=== PATIENT | female | born 1940 | race Caucasian/White ===

== ENCOUNTER 2021-01-04 09:39 | Inpatient (IN) | payer BC, MEDICARE ==
[~2021-01-04] VITALS: Ht 147.3 cm; Wt 93.8 kg
[2021-01-04 15:02] VITALS: BP 178/91
--- NOTE | 2021-01-04 15:53 | HPEPDOC ---
Custom Stock Maker Note DATE OF ADMISSION: 01-04-21 DATE OF SERVICE: 01-04-21 TIME OF ADMISSION: Please refer to physician's admission order. SOURCE OF ADMISSION INFORMATION: [facility] record and patient CHIEF COMPLAINT: stroke HISTORY OF PRESENT ILLNESS: 80F pmh HLD, DM, HTN, hypothyroidism, asplenia who presented to [facility] on 01-01-21 with slurred speech and left sided weakness. MRI 01-01-21 showed, 0.8cm focus of acute to subacute ischemia in the right anterior ben. Neurology was consulted and suggested ASA 325mg daily and statin therapy for secondary stroke prevention. ECHO showed no thrombus with an EF of 60% and diastolic dysfunction is present, however it can not be evaluated furtherbecause extensive mitral annular/apparatus calcification and US carotids did not show significant stenosis. She was placed on a puree diet and noted to have mobility and ADL impairments below her prior level of function and deemed medically appropriate for discharge to ARU on 01-04-21. On initial eval patient reports she recently underwent tooth extraction and had a course of antibiotics, but still feels some swelling and pain. SHe denies fevers or chills, no drainage. REVIEW OF SYSTEMS: The following is a completed review of systems and has been reviewed. Review of systems otherwise unremarkable. PAIN: Patient self reports no pain EYES: No recent vision changes EARS, NOSE, & THROAT: + dysphagia CARDIOVASCULAR: Denies chest pain or palpitations PULMONARY: Denies shortness of breath GASTROINTESTINAL: Denies constipation/diarrhea GENITOURINARY: denies dysuria MUSCULOSKELETAL: left sided weakness NEUROLOGICAL:left sided paresis HEMATOLOGICAL: denies easy bruising SKIN: denies rash PSYCHIATRIC: Unremarkable All other review of systems found to be negative. PAST MEDICAL HISTORY: as per HPI PAST SURGICAL HISTORY: as per HPI ALLERGIES: Please see below. MEDICATIONS: Please see below. FAMILY: Cardiac SOCIAL HISTORY: No smoking, occasional wine, no illicit drugs DIET: puree and nectar PHYSICAL EXAMINATION: VITAL SIGNS: Please see below. GENERAL: Pleasant and cooperative. No acute distress. HEENT: PERRL. Extraocular movements intact. Clear conjunctiva, no LAD CARDIOVASCULAR: Regular rate and rhythm. No murmurs, rubs, or gallops LUNGS: Clear to auscultation bilaterally. No wheezes. No rhonchi ABDOMEN: Soft, nontender, nondistended. Positive bowel sounds. Normal active bowel sounds NEUROLOGICAL: Alert and oriented times three. Cranial nerves II through XII grossly intact. Sensation grossly intact, no extinction to touch on left side EXTREMITIES: 5/5 RUE, 4/5 LUE, 5\5 strength right lower extremity. 4/5 strength in left lower extremity. SKIN: intact (+) bilat LE edema LABORATORY DATA: Please see below. IMAGING:Imaging documentation personally reviewed by record FUNCTIONAL STATUS: Premorbid: Independent with all activities of daily life as well as mobility On Admission: Requiring assistance for bed mobility, functional transfers, toileting GOALS: Mod-I functional transfers, ambulation household distances, dressing, toileting, bathing ASSESSMENT:80-year-old F with past medical history of HTN who presents status post stroke PLAN: 1. Rehab- PT/OT advance mobility and ADLs, strengthen/stretch/maintain ROM all 4 limbs -ASSISTANT SPA DIRECTOR for swallow and cog 2. Neuro- s/p stroke with left sided paresis, c/u ASA 325mg daily and statin for secondary stroke prevention -SSRI for motor recovery 3. Cardiac- hx of HTN c/u lisinopril, chronic diastolic CHF-daily weights, fluid restrict, will start low dose lasix given LE edema and monitor kidney function 4. Resp- encourage incentive spirometry, monitor for infection 5. Dental- will start Azithromycin to cover for recent tooth extraction, salt- water mouth rinses, magic mouth wash 6. Endo- hx of hypothyroidism- c/u synthroid 7. Pain -tylenol prn 8. DVT ppx- lovenox 9. GI ppx- protonix 10. DIpso- tbd POST ADMISSION PHYSICIAN EVALUATION: Medical and functional status: Description of medical status, medical assessment: As above. Rehabilitation diagnosis and current and prior cold morbid medical conditions as above. Risk of complications and plans to mitigate them as above. Description of functional status current status is as above. Prior status as above. Status compared to preadmission: There are no clinically significant differences between the patient's current status and the information described on the preadmission screening document. Treatment plan anticipated: Treatment plan is as described above. Required disciplines including physical therapy, occupational therapy, others as noted above Intensity of services: 3 hours a day, 6 days a week. Special considerations: There are no specific special or safety considerations that would likely preclude immediate implementation of an intensive rehabilitation program or subsequently influence the plan of care. ATTESTATION: Considering all the information above, it is my best judgment that this patient requires intensive rehabilitation therapy as described above and an inpatient hospital environment due to the complexity of nursing, medical, and rehabilitation needs required by the patient. Furthermore, this patient can reasonably be expected to participate in an benefit from an inpatient rehabilitation stay with an interdisciplinary team approach to the delivery of rehabilitation care under the direction and supervision of rehabilitation physician PROGNOSIS: Excellent ESTIMATED LENGTH OF STAY:10-14 days. PROJECTED DISCHARGE DESTINATION: Home with family support and any durable medical equipment required to increase functional safety and mobility. TIME SPENT COUNSELING AND COORDINATING INITIAL CARE: Greater than 70 minutes. Vital Signs Vital Sign - Last 24 Hours 01/04/21 15:02 Temp 98.0 Pulse 64 Resp 22 B/P (MAP) 178/91 (120) Pulse Ox 94 O2 Delivery Room Air Home Medications Scheduled Aspirin (Aspirin) 325 Mg Tablet, 325 MG PO DAILY, (Reported) Atorvastatin Calcium (Atorvastatin Calcium) 40 Mg Tablet, 80 MG PO QHS, (Reported) Diclofenac Sodium (Diclofenac Sodium) 75 Mg Tablet.dr, 75 MG PO BID, (Reported) Levothyroxine Sodium (Levothyroxine Sodium) 100 Mcg Tablet, 100 MCG PO DAILY, (Reported) Lisinopril (Lisinopril) 20 Mg Tablet, 20 MG PO DAILY, (Reported) Pantoprazole Sodium (Pantoprazole Sodium) 40 Mg Tablet.dr, 40 MG PO DAILY, (Reported) Scheduled PRN Docusate Sodium (Docusate Sodium) 100 Mg Capsule, 100 MG PO BID PRN for CONSTIPATION, (Reported) Allergies Coded Allergies: No Known Allergies (Unverified , 01/04/21) A-FIB/CHADSVASC A-FIB History Current/History of A-Fib/PAF?: No Current PO Anticoag Therapy: No ALHAJI PRATT MD Jan 04, 2021 15:53
[2021-01-04] MEDS ORDERED: AZITHROMYCIN 250MG TABLET PO ONE (15:55)
[2021-01-04] MEDS: LACTOBACILLUS ACIDOPHILUS CAP (BACID) PO SCH ×2 (16:00→21:16)
[2021-01-04] MEDS: REMEDY PHYTOPLEX Z-GUARD PASTE 113GM TUBE (FROM STOREROOM PRODUCT) TOP SCH ×2 (16:00→21:22)
[2021-01-04] MEDS ORDERED: ATOR40TA75 PO (16:26)
[2021-01-04] MEDS ORDERED: DICL75TA PO (16:26)
[2021-01-04] MEDS ORDERED: LEVO100T5 PO (16:26)
[2021-01-04] MEDS ORDERED: PANT40TA29 PO (16:26)
[2021-01-04] MEDS ORDERED: LISI20TA33 PO (16:26)
[2021-01-04] MEDS ORDERED: DOCU100C17 PO (16:55)
[2021-01-04] MEDS ORDERED: ASPI325T57 PO (16:55)
[2021-01-04] MEDS: MAGIC MOUTHWASH SUSPENSION BTL SSP SCH (17:18)
[2021-01-04] MEDS: ACETAMINOPHEN TAB 650MG DOSE (2X325MG) PO PRN (17:41)
[2021-01-04 20:20] VITALS: BP 128/56
[2021-01-04] MEDS: ATORVASTATIN 20 MG TAB PO SCH (21:16)
[2021-01-04] MEDS: DOCUSATE SODIUM 100MG CAPSULE PO SCH (21:16)
[2021-01-04] MEDS: SENNA 8.6 MG TAB (SENOKOT) PO SCH (21:16)
[2021-01-05] MEDS: LEVOTHYROXINE 100MCG TABLET (0.1MG) PO SCH (05:46)
[2021-01-05 06:32] VITALS: BP 137/63
[2021-01-05 07:11] LABS: BASO % 0.4 % (0.0-1.0); EOS # 0.3 10^3/uL (0.0-0.5); EOS % 3.5 % (0.0-3.0); HEMOGLOBIN 12.7 g/dl (12.0-15.5); LYMPH # 2.3 10^3/uL (1.5-5.0); LYMPH % 24.8 % (24.0-44.0); MEAN CORPUSCULAR HEMOGLOBIN 31.9 pg (27.0-33.0); MEAN CORPUSCULAR HGB CONC 31.8 g/dl (32.0-36.5); MEAN CORPUSCULAR VOLUME 100.5 fl (80.0-96.0); MONO # 0.6 10^3/uL (0.0-0.8); MONO % 6.2 % (2.0-8.0); NEUTROPHILS % 64.7 % (36.0-66.0); PLATELET COUNT, AUTOMATED 297 10^3/uL (150-450); RED BLOOD COUNT 3.98 10^6/uL (4.00-5.40); WHITE BLOOD COUNT 9.3 10^3/uL (4.0-10.0)
[2021-01-05 07:35] LABS: ALBUMIN 3.3 GM/DL (3.2-5.2); ALT/SGPT 23 U/L (12-78); BILIRUBIN,TOTAL 0.6 MG/DL (0.2-1.0); BLOOD UREA NITROGEN 16 MG/DL (7-18); CALCIUM LEVEL 9.3 MG/DL (8.8-10.2); CARBON DIOXIDE LEVEL 30 MEQ/L (21-32); CHLORIDE LEVEL 108 MEQ/L (98-107); CREATININE FOR GFR 0.86 MG/DL (0.55-1.30); GLOMERULAR FILTRATION RATE > 60.0 (>32); GLUCOSE, FASTING 113 MG/DL (70-100); SODIUM LEVEL 142 MEQ/L (136-145); TOTAL PROTEIN 6.5 GM/DL (6.4-8.2)
[2021-01-05] MEDS: ASPIRIN ENTERIC 325 MG TAB PO SCH (08:33)
[2021-01-05] MEDS: LACTOBACILLUS ACIDOPHILUS CAP (BACID) PO SCH ×3 (08:34→20:35)
[2021-01-05] MEDS: DOCUSATE SODIUM 100MG CAPSULE PO SCH ×2 (08:34→20:35)
[2021-01-05] MEDS: PANTOPRAZOLE 40MG TAB (PROTONIX) PO SCH (08:34)
[2021-01-05] MEDS: AZITHROMYCIN 250MG TABLET PO SCH (08:34)
[2021-01-05] MEDS: FUROSEMIDE 20 MG TAB PO SCH (08:34)
[2021-01-05] MEDS: REMEDY PHYTOPLEX Z-GUARD PASTE 113GM TUBE (FROM STOREROOM PRODUCT) TOP SCH ×3 (08:36→20:36)
[2021-01-05] MEDS: MAGIC MOUTHWASH SUSPENSION BTL SSP SCH ×3 (08:37→16:55)
[2021-01-05 14:00] VITALS: BP 122/75
[2021-01-05 20:00] VITALS: BP 119/58
[2021-01-05] MEDS: SENNA 8.6 MG TAB (SENOKOT) PO SCH (20:35)
[2021-01-05] MEDS: ATORVASTATIN 20 MG TAB PO SCH (20:35)
[2021-01-05] MEDS: ACETAMINOPHEN TAB 650MG DOSE (2X325MG) PO PRN (20:35)
[2021-01-06 05:32] VITALS: BP 140/65
[2021-01-06] MEDS: LEVOTHYROXINE 100MCG TABLET (0.1MG) PO SCH (05:48)
[2021-01-06] MEDS: FUROSEMIDE 20 MG TAB PO SCH (08:06)
[2021-01-06] MEDS: PANTOPRAZOLE 40MG TAB (PROTONIX) PO SCH (08:06)
[2021-01-06] MEDS: DOCUSATE SODIUM 100MG CAPSULE PO SCH ×2 (08:06→21:33)
[2021-01-06] MEDS: AZITHROMYCIN 250MG TABLET PO SCH (08:06)
[2021-01-06] MEDS: ASPIRIN ENTERIC 325 MG TAB PO SCH (08:06)
[2021-01-06] MEDS: MAGIC MOUTHWASH SUSPENSION BTL SSP SCH ×3 (08:06→16:57)
[2021-01-06] MEDS: LACTOBACILLUS ACIDOPHILUS CAP (BACID) PO SCH ×3 (08:06→21:33)
[2021-01-06] MEDS: REMEDY PHYTOPLEX Z-GUARD PASTE 113GM TUBE (FROM STOREROOM PRODUCT) TOP SCH ×3 (08:07→21:00)
[2021-01-06 14:00] VITALS: BP 133/64
[2021-01-06] MEDS: ACETAMINOPHEN TAB 650MG DOSE (2X325MG) PO PRN (16:58)
[2021-01-06 20:00] VITALS: BP 127/65
[2021-01-06] MEDS: SENNA 8.6 MG TAB (SENOKOT) PO SCH (21:33)
[2021-01-06] MEDS: ATORVASTATIN 20 MG TAB PO SCH (21:33)
[2021-01-07] MEDS: LEVOTHYROXINE 100MCG TABLET (0.1MG) PO SCH (05:37)
[2021-01-07 06:00] VITALS: BP 130/65
[2021-01-07] MEDS: FUROSEMIDE 20 MG TAB PO SCH (08:51)
[2021-01-07] MEDS: AZITHROMYCIN 250MG TABLET PO SCH (08:51)
[2021-01-07] MEDS: PANTOPRAZOLE 40MG TAB (PROTONIX) PO SCH (08:51)
[2021-01-07] MEDS: ASPIRIN ENTERIC 325 MG TAB PO SCH (08:51)
[2021-01-07] MEDS: LACTOBACILLUS ACIDOPHILUS CAP (BACID) PO SCH ×3 (08:51→20:43)
[2021-01-07] MEDS: DOCUSATE SODIUM 100MG CAPSULE PO SCH ×2 (08:51→20:43)
[2021-01-07] MEDS: REMEDY PHYTOPLEX Z-GUARD PASTE 113GM TUBE (FROM STOREROOM PRODUCT) TOP SCH ×3 (08:52→20:44)
[2021-01-07] MEDS: MAGIC MOUTHWASH SUSPENSION BTL SSP SCH ×3 (08:52→16:30)
--- NOTE | 2021-01-07 09:39 | IPNPDOC ---
PM&R Progress Note DATE OF SERVICE: Jan 07, 2021 Tester Equipment Progress Note Subjective: Patient reporting her tooth feels less sore, but that her neck is stiff and sore. REVIEW OF SYSTEMS: The following is a completed review of systems and has been reviewed. Review of systems otherwise unremarkable. PAIN: Patient self reports no pain EYES: No recent vision changes EARS, NOSE, & THROAT: + dysphagia CARDIOVASCULAR: Denies chest pain or palpitations PULMONARY: Denies shortness of breath GASTROINTESTINAL: Denies constipation/diarrhea GENITOURINARY: denies dysuria MUSCULOSKELETAL: left sided weakness NEUROLOGICAL:left sided paresis HEMATOLOGICAL: denies easy bruising SKIN: denies rash PSYCHIATRIC: Unremarkable All other review of systems found to be negative. PHYSICAL EXAMINATION: VITAL SIGNS: Please see below. GENERAL: Pleasant and cooperative. No acute distress. HEENT: PERRL. Extraocular movements intact. Clear conjunctiva, no LAD CARDIOVASCULAR: Regular rate and rhythm. No murmurs, rubs, or gallops LUNGS: Clear to auscultation bilaterally. No wheezes. No rhonchi ABDOMEN: Soft, nontender, nondistended. Positive bowel sounds. Normal active bowel sounds NEUROLOGICAL: Alert and oriented times three. Cranial nerves II through XII grossly intact. Sensation grossly intact, no extinction to touch on left side EXTREMITIES: 5/5 RUE, 4/5 LUE, 5\5 strength right lower extremity. 4/5 strength in left lower extremity. SKIN: intact (+) bilat LE edema +TTP bilat cervical paraspinals ASSESSMENT:80-year-old F with past medical history of HTN who presents status post stroke PLAN: 1. Rehab- PT/OT advance mobility and ADLs, strengthen/stretch/maintain ROM all 4 limbs -LARYNGOLOGIST for swallow and cog 2. Neuro- s/p stroke with left sided paresis, c/u ASA 325mg daily and statin for secondary stroke prevention -SSRI for motor recovery 3. Cardiac- hx of HTN c/u lisinopril, chronic diastolic CHF-daily weights, fluid restrict, c/u low dose lasix, LE edema improving and monitor kidney function 4. Resp- encourage incentive spirometry, monitor for infection 5. Dental- c/u Azithromycin to cover for recent tooth extraction, salt-water mouth rinses, magic mouth wash 6. Endo- hx of hypothyroidism- c/u synthroid 7. Pain -tylenol prn, lidoderm to neck and k-pad 8. DVT ppx- lovenox 9. GI ppx- protonix 10. DIpso- tbd Allergies Coded Allergies: No Known Allergies (Unverified , 01/04/21) Vital Signs Vital Signs Date Time Temp Pulse Resp B/P (MAP) Pulse Ox O2 Delivery O2 Flow Rate FiO2 01/07/21 08:56 136/64 01/07/21 06:00 97.5 66 18 92 Room Air Current Medications Current Medications Current Medications Medications (Trade) Dose Ordered Sig/Kavin Route PRN Reason Start Time Stop Time Status Last Admin Dose Admin Acetaminophen (Tylenol Tab) 650 mg Q4HP PRN PO fever/MILD PAIN (PS 1-4) 01/04/21 15:55 01/06/21 16:58 Aspirin (Ecotrin) 325 mg DAILY PO 01/05/21 09:00 01/07/21 08:51 Atorvastatin Calcium (Lipitor) 80 mg QHS PO 01/04/21 21:00 01/06/21 21:33 Azithromycin (Zithromax Tab) 250 mg DAILY PO 01/05/21 09:00 01/09/21 23:00 01/07/21 08:51 Docusate Sodium (Colace) 100 mg BID PO 01/04/21 21:00 01/07/21 08:51 Furosemide (Lasix) 20 mg DAILY PO 01/05/21 09:00 01/07/21 08:51 Home Med (Med Rec Complete!) ASDIRECTED XX 01/04/21 17:00 01/04/21 17:03 DC Lactobacillus Acidophilus (Bacid) 1 ea TID PO 01/04/21 16:00 01/07/21 08:51 Levothyroxine Sodium (Synthroid) 100 mcg DAILY@06 PO 01/05/21 06:00 01/07/21 05:37 Lidocaine/ Diphenhydr/Alum/ Mg/Simeth (Magic Mouthwash) 5ML AC SSP 01/04/21 17:30 01/07/21 08:52 Lisinopril (Prinivil) 20 mg DAILY PO 01/05/21 09:00 01/07/21 08:56 Pantoprazole Sodium (Protonix) 40 mg DAILY PO 01/05/21 09:00 01/07/21 08:51 Senna (Senokot) 1 tab [facility] PO 01/04/21 21:00 01/06/21 21:33 ALHAJI PRATT MD Jan 07, 2021 09:39
[2021-01-07 10:08] LABS: BASO # 0.1 10^3/uL (0.0-0.2); BASO % 0.8 % (0.0-1.0); EOS # 0.3 10^3/uL (0.0-0.5); EOS % 3.2 % (0.0-3.0); HEMOGLOBIN 12.9 g/dl (12.0-15.5); LYMPH # 2.4 10^3/uL (1.5-5.0); LYMPH % 24.7 % (24.0-44.0); MEAN CORPUSCULAR HEMOGLOBIN 31.9 pg (27.0-33.0); MEAN CORPUSCULAR HGB CONC 31.5 g/dl (32.0-36.5); MEAN CORPUSCULAR VOLUME 101.2 fl (80.0-96.0); MONO # 0.7 10^3/uL (0.0-0.8); MONO % 6.9 % (2.0-8.0); NEUTROPHILS # 6.3 10^3/uL (1.5-8.5); PLATELET COUNT, AUTOMATED 307 10^3/uL (150-450); RED BLOOD COUNT 4.05 10^6/uL (4.00-5.40); WHITE BLOOD COUNT 9.9 10^3/uL (4.0-10.0)
[2021-01-07 10:37] LABS: BLOOD UREA NITROGEN 26 MG/DL (7-18); CALCIUM LEVEL 9.1 MG/DL (8.8-10.2); CARBON DIOXIDE LEVEL 33 MEQ/L (21-32); CHLORIDE LEVEL 106 MEQ/L (98-107); GLOMERULAR FILTRATION RATE > 60.0 (>32); GLUCOSE, FASTING 116 MG/DL (70-100); POTASSIUM SERUM 4.2 MEQ/L (3.5-5.1); SODIUM LEVEL 142 MEQ/L (136-145)
[2021-01-07] MEDS: ACETAMINOPHEN TAB 650MG DOSE (2X325MG) PO PRN ×2 (12:14→17:26)
[2021-01-07 14:00] VITALS: BP 132/58
--- NOTE | 2021-01-07 18:51 | IPNPDOC ---
Text Note Date of Service The patient was seen on 01/07/21. NOTE Subjective: No any acute events overnight. Patient denied fever, chills, chest pain, palpitations Objective: GENERAL APPEARANCE: NAD HEENT: no scleral icterus, no JVD, EOMI CARDIOVASCULAR: S1S2 LUNGS: CTA ABDOMEN: soft & not tender w palpitation MUSCULOSKELETAL: no cyanosis, no swelling INTEGUMENT: no generalized pallor NEUROLOGICAL: cranial nerve function from 2-12 intact intact, follows commands, speech not dysarthric Assessment and plan: Patient is 80F pmh HLD, DM, HTN, hypothyroidism, asplenia was transferred to acute rehabilitation after right sided stroke. Status post stroke PT/OT Continue atorvastatin, aspirin Hypertension Blood pressures under control Continue home cardioprotective medications Chronic diastolic CHF Patient euvolemic I's and O's Cardiac diet Continue Lasix Hypothyroidism Continue levothyroxine Status post recent tooth extraction Patient developed tenderness over area of tooth extraction ARU team started azithromycin, salt-water mouth rinses, magic mouth wash VS,Fishbone, I+O VS, Fishbone, I+O Laboratory Tests 01/07/21 09:50 Vital Signs Date Time Temp Pulse Resp B/P (MAP) Pulse Ox O2 Delivery O2 Flow Rate FiO2 01/07/21 14:00 98.8 69 18 132/58 (82) 93 Room Air I&O- Last 24 Hours up to 6 AM 01/07/21 05:59 Intake Total 720 ml Balance 720 ml DEDRICK HAQUE DO Jan 07, 2021 18:51
[2021-01-07 20:00] VITALS: BP_SYST 150; BP_SYST 155; BP_DIAS 77; BP_DIAS 88
[2021-01-07] MEDS: SENNA 8.6 MG TAB (SENOKOT) PO SCH (20:43)
[2021-01-07] MEDS: LIDOCAINE 5% (LIDODERM) PATCH TD SCH (20:43)
[2021-01-07] MEDS: ATORVASTATIN 20 MG TAB PO SCH (20:44)
[2021-01-08 05:20] VITALS: BP 119/56
[2021-01-08] MEDS: LEVOTHYROXINE 100MCG TABLET (0.1MG) PO SCH (06:08)
[2021-01-08] MEDS: AZITHROMYCIN 250MG TABLET PO SCH (08:21)
[2021-01-08] MEDS: ASPIRIN ENTERIC 325 MG TAB PO SCH (08:22)
[2021-01-08] MEDS: LACTOBACILLUS ACIDOPHILUS CAP (BACID) PO SCH ×3 (08:22→20:45)
[2021-01-08] MEDS: FUROSEMIDE 20 MG TAB PO SCH (08:22)
[2021-01-08] MEDS: ACETAMINOPHEN TAB 650MG DOSE (2X325MG) PO PRN ×2 (08:22→13:55)
[2021-01-08] MEDS: DOCUSATE SODIUM 100MG CAPSULE PO SCH ×2 (08:22→20:45)
[2021-01-08] MEDS: PANTOPRAZOLE 40MG TAB (PROTONIX) PO SCH (08:22)
[2021-01-08] MEDS: MAGIC MOUTHWASH SUSPENSION BTL SSP SCH ×3 (08:23→16:12)
[2021-01-08] MEDS: REMEDY PHYTOPLEX Z-GUARD PASTE 113GM TUBE (FROM STOREROOM PRODUCT) TOP SCH ×3 (08:23→20:49)
[2021-01-08] MEDS: **NOTE PATIENT COMMENT** MISC XX SCH (08:23)
--- NOTE | 2021-01-08 11:38 | IPNPDOC ---
PM&R Progress Note DATE OF SERVICE: Jan 08, 2021 Case Briefer Progress Note Subjective: Patient tearful stating her neck is painful and she is worried that her family is stressed by her stroke. She is agreeable to trying Cymbalta for her neck pain and to help treat her stroke symptoms and mood. REVIEW OF SYSTEMS: The following is a completed review of systems and has been reviewed. Review of systems otherwise unremarkable. PAIN: Patient self reports no pain EYES: No recent vision changes EARS, NOSE, & THROAT: + dysphagia CARDIOVASCULAR: Denies chest pain or palpitations PULMONARY: Denies shortness of breath GASTROINTESTINAL: Denies constipation/diarrhea GENITOURINARY: denies dysuria MUSCULOSKELETAL: left sided weakness NEUROLOGICAL:left sided paresis HEMATOLOGICAL: denies easy bruising SKIN: denies rash PSYCHIATRIC: Unremarkable All other review of systems found to be negative. PHYSICAL EXAMINATION: VITAL SIGNS: Please see below. GENERAL: No acute distress. HEENT: PERRL. Extraocular movements intact. Clear conjunctiva, no LAD CARDIOVASCULAR: Regular rate and rhythm. No murmurs, rubs, or gallops LUNGS: Clear to auscultation bilaterally. No wheezes. No rhonchi ABDOMEN: Soft, nontender, nondistended. Positive bowel sounds. Normal active bowel sounds NEUROLOGICAL: Alert and oriented times three. Cranial nerves II through XII gr ossly intact. Sensation grossly intact, no extinction to touch on left side EXTREMITIES: 5/5 RUE, 4/5 LUE, 5\5 strength right lower extremity. 4/5 strength in left lower extremity. SKIN: intact (+) bilat LE edema (improving) +TTP bilat cervical paraspinals ASSESSMENT:80-year-old F with past medical history of HTN who presents status post stroke PLAN: 1. Rehab- PT/OT advance mobility and ADLs, strengthen/stretch/maintain ROM all 4 limbs -AUDIO SPECIALIST for swallow and cog 2. Neuro- s/p stroke with left sided paresis, c/u ASA 325mg daily and statin for secondary stroke prevention -SNRI for motor recovery- cymbalta 20mg daily 3. Cardiac- hx of HTN c/u lisinopril, chronic diastolic CHF-daily weights, fluid restrict, c/u low dose lasix, LE edema improving and monitor kidney function 4. Resp- encourage incentive spirometry, monitor for infection 5. Dental- c/u Azithromycin to cover for recent tooth extraction, salt-water mouth rinses, magic mouth wash 6. Endo- hx of hypothyroidism- c/u synthroid 7. Pain - lidoderm alternated with flector patch to neck and k-pad, will start cymbalta 20mg daily and gabapentin 100mg TID, Tylenon changed to 1g TID 8. DVT ppx- lovenox 9. GI ppx- protonix 10. DIpso- tbd Allergies Coded Allergies: No Known Allergies (Unverified , 01/04/21) Vital Signs Vital Signs Date Time Temp Pulse Resp B/P (MAP) Pulse Ox O2 Delivery O2 Flow Rate FiO2 01/08/21 08:22 119/56 01/08/21 05:20 98.2 54 18 90 Room Air Current Medications Current Medications Current Medications Medications (Trade) Dose Ordered Sig/Kavin Route PRN Reason Start Time Stop Time Status Last Admin Dose Admin Acetaminophen (Tylenol Tab) 650 mg Q4HP PRN PO fever/MILD PAIN (PS 1-4) 01/04/21 15:55 01/08/21 08:22 Aspirin (Ecotrin) 325 mg DAILY PO 01/05/21 09:00 01/08/21 08:22 Atorvastatin Calcium (Lipitor) 80 mg QHS PO 01/04/21 21:00 01/07/21 20:44 Azithromycin (Zithromax Tab) 250 mg DAILY PO 01/05/21 09:00 01/09/21 23:00 01/08/21 08:21 Docusate Sodium (Colace) 100 mg BID PO 01/04/21 21:00 01/08/21 08:22 Furosemide (Lasix) 20 mg DAILY PO 01/05/21 09:00 01/08/21 08:22 Home Med (Med Rec Complete!) ASDIRECTED XX 01/04/21 17:00 01/04/21 17:03 DC Lactobacillus Acidophilus (Bacid) 1 ea TID PO 01/04/21 16:00 01/08/21 08:22 Levothyroxine Sodium (Synthroid) 100 mcg DAILY@06 PO 01/05/21 06:00 01/08/21 06:08 Lidocaine (Lidoderm Patch) 1 patch QHS TD 01/07/21 21:00 01/07/21 20:43 Lidocaine/ Diphenhydr/Alum/ Mg/Simeth (Magic Mouthwash) 5ML AC SSP 01/04/21 17:30 01/08/21 08:23 Lisinopril (Prinivil) 20 mg DAILY PO 01/05/21 09:00 01/08/21 08:22 Non-Formulary Medication ( See Comment Field Below ) REMOVE LIDODERM PATCH DAILY XX 01/08/21 09:00 01/08/21 08:23 Pantoprazole Sodium (Protonix) 40 mg DAILY PO 01/05/21 09:00 01/08/21 08:22 Senna (Senokot) 1 tab QHS PO 01/04/21 21:00 01/07/21 20:43 ALHAJI PRATT MD Jan 08, 2021 11:38
[2021-01-08 14:00] VITALS: BP 134/60
[2021-01-08] MEDS: GABAPENTIN 100 MG CAP PO SCH ×2 (16:10→20:45)
[2021-01-08] MEDS: DICLOFENAC EPOLAMINE 1.3 % PATCH TOP SCH (16:10)
[2021-01-08] MEDS: DULoxetine 20 MG CAP (CYMBALTA) PO SCH (16:11)
[2021-01-08] MEDS: ATORVASTATIN 20 MG TAB PO SCH (20:45)
[2021-01-08] MEDS: SENNA 8.6 MG TAB (SENOKOT) PO SCH (20:45)
[2021-01-08] MEDS: ACETAMINOPHEN 500 MG TAB PO SCH (20:46)
[2021-01-08] MEDS: LIDOCAINE 5% (LIDODERM) PATCH TD SCH (20:46)
[2021-01-08] MEDS: [UNRECOGNIZED DRUG - REMARK] XX SCH (20:49)
[2021-01-08 22:00] VITALS: BP 143/67
[2021-01-09 05:00] VITALS: BP 138/81
[2021-01-09] MEDS: LEVOTHYROXINE 100MCG TABLET (0.1MG) PO SCH (05:56)
[2021-01-09] MEDS: ACETAMINOPHEN 500 MG TAB PO SCH ×3 (06:44→20:19)
[2021-01-09] MEDS: GABAPENTIN 100 MG CAP PO SCH ×3 (08:32→20:16)
[2021-01-09] MEDS: PANTOPRAZOLE 40MG TAB (PROTONIX) PO SCH (08:32)
[2021-01-09] MEDS: ASPIRIN ENTERIC 325 MG TAB PO SCH (08:32)
[2021-01-09] MEDS: DICLOFENAC EPOLAMINE 1.3 % PATCH TOP SCH (08:33)
[2021-01-09] MEDS: DOCUSATE SODIUM 100MG CAPSULE PO SCH ×2 (08:33→20:16)
[2021-01-09] MEDS: FUROSEMIDE 20 MG TAB PO SCH (08:33)
[2021-01-09] MEDS: AZITHROMYCIN 250MG TABLET PO SCH (08:33)
[2021-01-09] MEDS: LACTOBACILLUS ACIDOPHILUS CAP (BACID) PO SCH ×3 (08:33→20:17)
[2021-01-09] MEDS: DULoxetine 20 MG CAP (CYMBALTA) PO SCH (08:33)
[2021-01-09] MEDS: MAGIC MOUTHWASH SUSPENSION BTL SSP SCH ×3 (08:34→17:11)
[2021-01-09] MEDS: REMEDY PHYTOPLEX Z-GUARD PASTE 113GM TUBE (FROM STOREROOM PRODUCT) TOP SCH ×3 (08:34→20:22)
[2021-01-09] MEDS: **NOTE PATIENT COMMENT** MISC XX SCH (08:34)
[2021-01-09] MEDS ORDERED: ACETAMINOPHEN TAB 650MG DOSE (2X325MG) PO PRN (12:50)
--- NOTE | 2021-01-09 12:53 | IPNPDOC ---
PM&R Progress Note DATE OF SERVICE: Jan 09, 2021 Stock Manager Progress Note Subjective: Patient states her neck pain is better, but she is concerned because she is due for her second Covid shot tomorrow which she received in [place]. REVIEW OF SYSTEMS: The following is a completed review of systems and has been reviewed. Review of systems otherwise unremarkable. PAIN: Patient self reports no pain EYES: No recent vision changes EARS, NOSE, & THROAT: + dysphagia CARDIOVASCULAR: Denies chest pain or palpitations PULMONARY: Denies shortness of breath GASTROINTESTINAL: Denies constipation/diarrhea GENITOURINARY: denies dysuria MUSCULOSKELETAL: left sided weakness NEUROLOGICAL:left sided paresis HEMATOLOGICAL: denies easy bruising SKIN: denies rash PSYCHIATRIC: Unremarkable All other review of systems found to be negative. PHYSICAL EXAMINATION: VITAL SIGNS: Please see below. GENERAL: No acute distress. HEENT: PERRL. Extraocular movements intact. Clear conjunctiva, no LAD CARDIOVASCULAR: Regular rate and rhythm. No murmurs, rubs, or gallops LUNGS: Clear to auscultation bilaterally. No wheezes. No rhonchi ABDOMEN: Soft, nontender, nondistended. Positive bowel sounds. Normal active bowel sounds NEUROLOGICAL: Alert and oriented times three. Cranial nerves II through XII grossly intact. Sensation grossly intact, no extinction to touch on left side EXTREMITIES: 5/5 RUE, 4/5 LUE, 5\5 strength right lower extremity. 4/5 strength in left lower extremity. SKIN: intact (+) bilat LE edema (improving) +TTP bilat cervical paraspinals ASSESSMENT:80-year-old F with past medical history of HTN who presents status post stroke PLAN: 1. Rehab- PT/OT advance mobility and ADLs, strengthen/stretch/maintain ROM all 4 limbs -BOX MAKER WOOD for swallow and cog 2. Neuro- s/p stroke with left sided paresis, c/u ASA 325mg daily and statin for secondary stroke prevention -SNRI for motor recovery- cymbalta 20mg daily 3. Cardiac- hx of HTN c/u lisinopril, chronic diastolic CHF-daily weights, fluid restrict, will hold lasix and stop ЕКАТЕРИНА-I due to MARTHA, will start metoprolol 4. Resp- encourage incentive spirometry, monitor for infection 5. Dental- c/u Azithromycin to cover for recent tooth extraction, salt-water mouth rinses, magic mouth wash 6. Endo- hx of hypothyroidism- c/u synthroid 7. Pain - lidoderm alternated with flector patch to neck and k-pad, c/u cymbalta 20mg daily and gabapentin 100mg TID, Tylenon changed to 1g TID 8. DVT ppx- lovenox 9. GI ppx- protonix 10. DIpso- goal to home 01-14-21, have asked patient to reschedule her 2nd Covid shot by a few days so that she can finish up her course of therapy Allergies Coded Allergies: No Known Allergies (Unverified , 01/04/21) Vital Signs Vital Signs Date Time Temp Pulse Resp B/P (MAP) Pulse Ox O2 Delivery O2 Flow Rate FiO2 01/09/21 08:33 132/60 01/09/21 05:00 98.6 52 20 92 Room Air Current Medications Current Medications Current Medications Medications (Trade) Dose Ordered Sig/Kavin Route PRN Reason Start Time Stop Time Status Last Admin Dose Admin Acetaminophen (Tylenol Tab) 650 mg Q4HP PRN PO fever/MILD PAIN (PS 1-4) 01/04/21 15:55 01/08/21 14:15 DC 01/08/21 13:55 Acetaminophen (Tylenol Tab) 1,000 mg TID PO 01/08/21 21:00 01/09/21 06:44 Aspirin (Ecotrin) 325 mg DAILY PO 01/05/21 09:00 01/09/21 08:32 Atorvastatin Calcium (Lipitor) 80 mg QHS PO 01/04/21 21:00 01/08/21 20:45 Azithromycin (Zithromax Tab) 250 mg DAILY PO 01/05/21 09:00 01/09/21 23:00 01/09/21 08:33 Diclofenac Epolamine (Flector 1.3%) 1 patch DAILY TOP 01/08/21 14:45 01/09/21 08:33 Docusate Sodium (Colace) 100 mg BID PO 01/04/21 21:00 01/09/21 08:33 Duloxetine HCl (Cymbalta) 20 mg DAILY PO 01/08/21 15:00 01/09/21 08:33 Furosemide (Lasix) 20 mg DAILY PO 01/05/21 09:00 01/09/21 08:33 Gabapentin (Neurontin) 100 mg TID PO 01/08/21 16:00 01/09/21 08:32 Home Med (Med Rec Complete!) ASDIRECTED XX 01/04/21 17:00 01/04/21 17:03 DC Lactobacillus Acidophilus (Bacid) 1 ea TID PO 01/04/21 16:00 01/09/21 08:33 Levothyroxine Sodium (Synthroid) 100 mcg DAILY@06 PO 01/05/21 06:00 01/09/21 05:56 Lidocaine (Lidoderm Patch) 1 patch QHS TD 01/07/21 21:00 01/08/21 20:46 Lidocaine/ Diphenhydr/Alum/ Mg/Simeth (Magic Mouthwash) 5ML AC SSP 01/04/21 17:30 01/09/21 12:27 Lisinopril (Prinivil) 20 mg DAILY PO 01/05/21 09:00 01/09/21 08:33 Non-Formulary Medication ( See Comment Field Below ) REMOVE FLECTOR PATCH DAILY@21 XX 01/08/21 21:00 01/08/21 20:49 Non-Formulary Medication ( See Comment Field Below ) REMOVE LIDODERM PATCH DAILY XX 01/08/21 09:00 01/09/21 08:34 Pantoprazole Sodium (Protonix) 40 mg DAILY PO 01/05/21 09:00 01/09/21 08:32 Senna (Senokot) 1 tab QHS PO 01/04/21 21:00 01/08/21 20:45 ALHAJI PRATT MD Jan 09, 2021 12:53
[2021-01-09 14:00] VITALS: BP 119/54
[2021-01-09 14:35] LABS: CALCIUM LEVEL 9.3 MG/DL (8.8-10.2); CREATININE FOR GFR 1.16 MG/DL (0.55-1.30); GLOMERULAR FILTRATION RATE 47.9 (>32); POTASSIUM SERUM 3.9 MEQ/L (3.5-5.1)
[2021-01-09 15:46] LABS: BASO # 0.1 10^3/uL (0.0-0.2); BASO % 0.8 % (0.0-1.0); EOS # 0.3 10^3/uL (0.0-0.5); EOS % 3.4 % (0.0-3.0); HEMATOCRIT 42.2 % (36.0-47.0); HEMOGLOBIN 13.6 g/dl (12.0-15.5); LYMPH % 22.1 % (24.0-44.0); MEAN CORPUSCULAR HEMOGLOBIN 32.9 pg (27.0-33.0); MEAN CORPUSCULAR HGB CONC 32.2 g/dl (32.0-36.5); MEAN CORPUSCULAR VOLUME 102.2 fl (80.0-96.0); MONO # 0.7 10^3/uL (0.0-0.8); MONO % 7.8 % (2.0-8.0); NEUTROPHILS # 5.9 10^3/uL (1.5-8.5); NEUTROPHILS % 65.5 % (36.0-66.0); PLATELET COUNT, AUTOMATED 332 10^3/uL (150-450); RED BLOOD COUNT 4.13 10^6/uL (4.00-5.40); WHITE BLOOD COUNT 9.1 10^3/uL (4.0-10.0)
[2021-01-09 20:00] VITALS: BP 117/56
[2021-01-09] MEDS: ATORVASTATIN 20 MG TAB PO SCH (20:16)
[2021-01-09] MEDS: SENNA 8.6 MG TAB (SENOKOT) PO SCH (20:16)
[2021-01-09] MEDS: METOPROLOL TART 12.5 MG PER 1/2 TAB PO SCH (20:18)
[2021-01-09] MEDS: LIDOCAINE 5% (LIDODERM) PATCH TD SCH (20:21)
[2021-01-09] MEDS: [UNRECOGNIZED DRUG - REMARK] XX SCH (20:22)
[2021-01-10 06:00] VITALS: BP 149/69
[2021-01-10] MEDS: LEVOTHYROXINE 100MCG TABLET (0.1MG) PO SCH (06:07)
[2021-01-10] MEDS: LACTOBACILLUS ACIDOPHILUS CAP (BACID) PO SCH ×3 (08:11→20:55)
[2021-01-10] MEDS: DOCUSATE SODIUM 100MG CAPSULE PO SCH ×2 (08:12→20:55)
[2021-01-10] MEDS: DULoxetine 20 MG CAP (CYMBALTA) PO SCH (08:12)
[2021-01-10] MEDS: METOPROLOL TART 12.5 MG PER 1/2 TAB PO SCH ×2 (08:14→20:54)
[2021-01-10] MEDS: GABAPENTIN 100 MG CAP PO SCH ×2 (08:14→15:49)
[2021-01-10] MEDS: ASPIRIN ENTERIC 325 MG TAB PO SCH (08:14)
[2021-01-10] MEDS: PANTOPRAZOLE 40MG TAB (PROTONIX) PO SCH (08:14)
[2021-01-10] MEDS: MAGIC MOUTHWASH SUSPENSION BTL SSP SCH ×3 (08:15→17:01)
[2021-01-10] MEDS: ACETAMINOPHEN 500 MG TAB PO SCH ×3 (08:15→20:55)
[2021-01-10] MEDS: REMEDY PHYTOPLEX Z-GUARD PASTE 113GM TUBE (FROM STOREROOM PRODUCT) TOP SCH ×3 (08:16→20:56)
[2021-01-10] MEDS: DICLOFENAC EPOLAMINE 1.3 % PATCH TOP SCH (08:16)
[2021-01-10] MEDS: **NOTE PATIENT COMMENT** MISC XX SCH (08:16)
--- NOTE | 2021-01-10 08:24 | IPNPDOC ---
PM&R Progress Note DATE OF SERVICE: Jan 10, 2021 Director Market Research Progress Note Subjective: Patient seen in her room wondering about how to manage the mouth wash for the free water protocol. She states her neck pain is somewhat better this afternoon. REVIEW OF SYSTEMS: The following is a completed review of systems and has been reviewed. Review of systems otherwise unremarkable. PAIN: Patient self reports neck pain EYES: No recent vision changes EARS, NOSE, & THROAT: + dysphagia CARDIOVASCULAR: Denies chest pain or palpitations PULMONARY: Denies shortness of breath GASTROINTESTINAL: Denies constipation/diarrhea GENITOURINARY: denies dysuria MUSCULOSKELETAL: left sided weakness NEUROLOGICAL:left sided paresis HEMATOLOGICAL: denies easy bruising SKIN: denies rash PSYCHIATRIC: Unremarkable All other review of systems found to be negative. PHYSICAL EXAMINATION: VITAL SIGNS: Please see below. GENERAL: No acute distress. HEENT: PERRL. Extraocular movements intact. Clear conjunctiva, no LAD CARDIOVASCULAR: Regular rate and rhythm. No murmurs, rubs, or gallops LUNGS: Clear to auscultation bilaterally. No wheezes. No rhonchi ABDOMEN: Soft, nontender, nondistended. Positive bowel sounds. Normal active bowel sounds NEUROLOGICAL: Alert and oriented times three. Cranial nerves II through XII grossly intact. Sensation grossly intact, no extinction to touch on left side EXTREMITIES: 5/5 RUE, 4/5 LUE, 5\5 strength right lower extremity. 4/5 strength in left lower extremity. SKIN: intact (+) bilat LE edema (improving) +TTP bilat cervical paraspinals ASSESSMENT:80-year-old F with past medical history of HTN who presents status post stroke PLAN: 1. Rehab- PT/OT advance mobility and ADLs, strengthen/stretch/maintain ROM all 4 limbs -SEBD TEACHER for swallow and cog- puree and derrick monet free water protocol in place 2. Neuro- s/p stroke with left sided paresis, c/u ASA 325mg daily and statin for secondary stroke prevention -SNRI for motor recovery- cymbalta 20mg daily 3. Cardiac- hx of HTN c/u lisinopril, chronic diastolic CHF-daily weights, fluid restrict, will hold lasix and stop ЕКАТЕРИНА-I due to MARTHA, c/u metoprolol and a mlodipine 4. Resp- encourage incentive spirometry, monitor for infection 5. Dental- c/u Azithromycin to cover for recent tooth extraction, salt-water mouth rinses, magic mouth wash 6. Endo- hx of hypothyroidism- c/u synthroid 7. Pain - lidoderm alternated with flector patch to neck and k-pad, c/u cymbalta 20mg daily and gabapentin 100mg TID, Tylenon changed to 1g TID 8. DVT ppx- lovenox 9. GI ppx- protonix 10. DIpso- goal to home 01-14-21, have asked patient to reschedule her 2nd Covid shot by a few days so that she can finish up her course of therapy Allergies Coded Allergies: No Known Allergies (Unverified , 01/04/21) Vital Signs Vital Signs Date Time Temp Pulse Resp B/P (MAP) Pulse Ox O2 Delivery O2 Flow Rate FiO2 01/10/21 06:00 97.7 59 19 149/69 (95) 92 Room Air Laboratory Data CBC/BMP Laboratory Tests 01/09/21 13:57 Labs 24H Laboratory Tests 2 01/09/21 13:57: Immature Granulocyte % (Auto) 0.4, Neutrophils (%) (Auto) 65.5, Lymphocytes (%) (Auto) 22.1L, Monocytes (%) (Auto) 7.8, Eosinophils (%) (Auto) 3.4H, Basophils (%) (Auto) 0.8, Neutrophils # (Auto) 5.9, Lymphocytes # (Auto) 2.0, Monocytes # (Auto) 0.7, Eosinophils # (Auto) 0.3, Basophils # (Auto) 0.1, Nucleated Red Blood Cells % (auto) 0.0, Anion Gap 6L, Glomerular Filtration Rate 47.9, Calcium Level 9.3 Current Medications Current Medications Current Medications Medications (Trade) Dose Ordered Sig/Kavin Route PRN Reason Start Time Stop Time Status Last Admin Dose Admin Acetaminophen (Tylenol Tab) 650 mg ASDIRECTED PRN PO PAIN / FEVER 01/09/21 12:50 Acetaminophen (Tylenol Tab) 650 mg Q4HP PRN PO fever/MILD PAIN (PS 1-4) 01/04/21 15:55 01/08/21 14:15 DC 01/08/21 13:55 Acetaminophen (Tylenol Tab) 1,000 mg TID PO 01/08/21 21:00 01/09/21 20:19 Aspirin (Ecotrin) 325 mg DAILY PO 01/05/21 09:00 01/09/21 08:32 Atorvastatin Calcium (Lipitor) 80 mg QHS PO 01/04/21 21:00 01/09/21 20:16 Azithromycin (Zithromax Tab) 250 mg DAILY PO 01/05/21 09:00 01/09/21 23:00 DC 01/09/21 08:33 Diclofenac Epolamine (Flector 1.3%) 1 patch DAILY TOP 01/08/21 14:45 01/09/21 08:33 Docusate Sodium (Colace) 100 mg BID PO 01/04/21 21:00 01/09/21 20:16 Duloxetine HCl (Cymbalta) 20 mg DAILY PO 01/08/21 15:00 01/09/21 08:33 Furosemide (Lasix) 20 mg DAILY PO 01/05/21 09:00 01/09/21 16:11 DC 01/09/21 08:33 Gabapentin (Neurontin) 100 mg TID PO 01/08/21 16:00 01/09/21 20:16 Home Med (Med Rec Complete!) ASDIRECTED XX 01/04/21 17:00 01/04/21 17:03 DC Lactobacillus Acidophilus (Bacid) 1 ea TID PO 01/04/21 16:00 01/09/21 20:17 Levothyroxine Sodium (Synthroid) 100 mcg DAILY@06 PO 01/05/21 06:00 01/10/21 06:07 Lidocaine (Lidoderm Patch) 1 patch QHS TD 01/07/21 21:00 01/09/21 20:21 Lidocaine/ Diphenhydr/Alum/ Mg/Simeth (Magic Mouthwash) 5ML- please do free wa... AC SSP 01/04/21 17:30 01/09/21 17:11 Lisinopril (Prinivil) 20 mg DAILY PO 01/05/21 09:00 01/09/21 16:11 DC 01/09/21 08:33 Metoprolol Tartrate (Lopressor) 12.5 mg BID PO 01/09/21 21:00 Non-Formulary Medication ( See Comment Field Below ) REMOVE FLECTOR PATCH DAILY@21 XX 01/08/21 21:00 01/09/21 20:22 Non-Formulary Medication ( See Comment Field Below ) REMOVE LIDODERM PATCH DAILY XX 01/08/21 09:00 01/09/21 08:34 Pantoprazole Sodium (Protonix) 40 mg DAILY PO 01/05/21 09:00 01/09/21 08:32 Senna (Senokot) 1 tab QHS PO 01/04/21 21:00 01/09/21 20:16 ALHAJI PRATT MD Jan 10, 2021 08:24
[2021-01-10] MEDS: amLODIPine 5 MG TAB PO SCH (08:59)
[2021-01-10] MEDS ORDERED: BACLOFEN 5MG PER 1/2 TABLET PO ONE (18:00)
[2021-01-10 20:20] VITALS: BP 150/76
[2021-01-10] MEDS: SENNA 8.6 MG TAB (SENOKOT) PO SCH (20:53)
[2021-01-10] MEDS: ATORVASTATIN 20 MG TAB PO SCH (20:53)
[2021-01-10] MEDS: LIDOCAINE 5% (LIDODERM) PATCH TD SCH (20:55)
[2021-01-10] MEDS: [UNRECOGNIZED DRUG - REMARK] XX SCH (21:00)
[2021-01-11] MEDS: LEVOTHYROXINE 100MCG TABLET (0.1MG) PO SCH (05:31)
[2021-01-11 06:00] VITALS: BP 141/65
[2021-01-11 06:09] LABS: BASO # 0.1 10^3/uL (0.0-0.2); BASO % 0.6 % (0.0-1.0); EOS # 0.3 10^3/uL (0.0-0.5); EOS % 4.4 % (0.0-3.0); HEMATOCRIT 41.3 % (36.0-47.0); HEMOGLOBIN 13.2 g/dl (12.0-15.5); LYMPH # 2.1 10^3/uL (1.5-5.0); LYMPH % 26.8 % (24.0-44.0); MEAN CORPUSCULAR HEMOGLOBIN 32.6 pg (27.0-33.0); MONO # 0.7 10^3/uL (0.0-0.8); MONO % 8.6 % (2.0-8.0); NEUTROPHILS # 4.6 10^3/uL (1.5-8.5); NEUTROPHILS % 59.2 % (36.0-66.0); PLATELET COUNT, AUTOMATED 307 10^3/uL (150-450); RED BLOOD COUNT 4.05 10^6/uL (4.00-5.40); WHITE BLOOD COUNT 7.7 10^3/uL (4.0-10.0)
[2021-01-11] MEDS: BACLOFEN 5MG PER 1/2 TABLET PO PRN ×2 (06:22→17:58)
[2021-01-11 06:27] LABS: BLOOD UREA NITROGEN 24 MG/DL (7-18); CARBON DIOXIDE LEVEL 33 MEQ/L (21-32); CHLORIDE LEVEL 106 MEQ/L (98-107); CREATININE FOR GFR 0.86 MG/DL (0.55-1.30); GLOMERULAR FILTRATION RATE > 60.0 (>32); GLUCOSE, FASTING 113 MG/DL (70-100); POTASSIUM SERUM 4.4 MEQ/L (3.5-5.1); SODIUM LEVEL 141 MEQ/L (136-145)
[2021-01-11] MEDS: REMEDY PHYTOPLEX Z-GUARD PASTE 113GM TUBE (FROM STOREROOM PRODUCT) TOP SCH ×3 (09:00→20:53)
[2021-01-11] MEDS: DOCUSATE SODIUM 100MG CAPSULE PO SCH ×2 (09:00→20:51)
[2021-01-11] MEDS: MAGIC MOUTHWASH SUSPENSION BTL SSP SCH ×3 (09:08→15:39)
[2021-01-11] MEDS: ASPIRIN ENTERIC 325 MG TAB PO SCH (09:08)
[2021-01-11] MEDS: DULoxetine 20 MG CAP (CYMBALTA) PO SCH (09:08)
[2021-01-11] MEDS: DICLOFENAC EPOLAMINE 1.3 % PATCH TOP SCH (09:08)
[2021-01-11] MEDS: amLODIPine 5 MG TAB PO SCH (09:09)
[2021-01-11] MEDS: PANTOPRAZOLE 40MG TAB (PROTONIX) PO SCH (09:09)
[2021-01-11] MEDS: LACTOBACILLUS ACIDOPHILUS CAP (BACID) PO SCH ×3 (09:09→20:52)
[2021-01-11] MEDS: METOPROLOL TART 12.5 MG PER 1/2 TAB PO SCH ×2 (09:09→20:52)
[2021-01-11] MEDS: **NOTE PATIENT COMMENT** MISC XX SCH (09:10)
[2021-01-11] MEDS: ACETAMINOPHEN 500 MG TAB PO SCH ×3 (09:10→20:54)
[2021-01-11 14:00] VITALS: BP 178/90
[2021-01-11 14:45] VITALS: BP 158/80
[2021-01-11 20:00] VITALS: BP 138/66
[2021-01-11] MEDS: ATORVASTATIN 20 MG TAB PO SCH (20:51)
[2021-01-11] MEDS: LIDOCAINE 5% (LIDODERM) PATCH TD SCH (20:51)
[2021-01-11] MEDS: SENNA 8.6 MG TAB (SENOKOT) PO SCH (20:52)
[2021-01-11] MEDS: [UNRECOGNIZED DRUG - REMARK] XX SCH (20:53)
[2021-01-12 05:18] VITALS: BP 110/53
[2021-01-12] MEDS: LEVOTHYROXINE 100MCG TABLET (0.1MG) PO SCH (06:05)
[2021-01-12] MEDS: PANTOPRAZOLE 40MG TAB (PROTONIX) PO SCH (08:29)
[2021-01-12] MEDS: BACLOFEN 5MG PER 1/2 TABLET PO PRN ×2 (08:29→21:28)
[2021-01-12] MEDS: DULoxetine 20 MG CAP (CYMBALTA) PO SCH (08:29)
[2021-01-12] MEDS: DOCUSATE SODIUM 100MG CAPSULE PO SCH ×2 (08:29→21:21)
[2021-01-12] MEDS: LACTOBACILLUS ACIDOPHILUS CAP (BACID) PO SCH ×3 (08:29→21:21)
[2021-01-12] MEDS: DICLOFENAC EPOLAMINE 1.3 % PATCH TOP SCH (08:29)
[2021-01-12] MEDS: ASPIRIN ENTERIC 325 MG TAB PO SCH (08:29)
[2021-01-12] MEDS: amLODIPine 5 MG TAB PO SCH (08:30)
[2021-01-12] MEDS: ACETAMINOPHEN 500 MG TAB PO SCH ×3 (08:31→21:22)
[2021-01-12] MEDS: METOPROLOL TART 12.5 MG PER 1/2 TAB PO SCH ×2 (08:31→21:00)
[2021-01-12] MEDS: **NOTE PATIENT COMMENT** MISC XX SCH (08:32)
[2021-01-12] MEDS: MAGIC MOUTHWASH SUSPENSION BTL SSP SCH ×3 (08:32→16:33)
[2021-01-12] MEDS: REMEDY PHYTOPLEX Z-GUARD PASTE 113GM TUBE (FROM STOREROOM PRODUCT) TOP SCH ×3 (08:33→21:23)
[2021-01-12 14:00] VITALS: BP 122/57
[2021-01-12 20:00] VITALS: BP 144/66
[2021-01-12] MEDS: ATORVASTATIN 20 MG TAB PO SCH (21:21)
[2021-01-12] MEDS: SENNA 8.6 MG TAB (SENOKOT) PO SCH (21:21)
[2021-01-12] MEDS: LIDOCAINE 5% (LIDODERM) PATCH TD SCH (21:22)
[2021-01-12] MEDS: [UNRECOGNIZED DRUG - REMARK] XX SCH (21:25)
[2021-01-13 06:00] VITALS: BP 151/64
[2021-01-13] MEDS: LEVOTHYROXINE 100MCG TABLET (0.1MG) PO SCH (06:02)
[2021-01-13] MEDS: DICLOFENAC EPOLAMINE 1.3 % PATCH TOP SCH (07:55)
[2021-01-13] MEDS: DULoxetine 20 MG CAP (CYMBALTA) PO SCH (07:56)
[2021-01-13] MEDS: MAGIC MOUTHWASH SUSPENSION BTL SSP SCH ×3 (07:56→18:19)
[2021-01-13] MEDS: LACTOBACILLUS ACIDOPHILUS CAP (BACID) PO SCH ×3 (07:56→20:11)
[2021-01-13] MEDS: ASPIRIN ENTERIC 325 MG TAB PO SCH (07:56)
[2021-01-13] MEDS: ACETAMINOPHEN 500 MG TAB PO SCH ×3 (07:56→20:11)
[2021-01-13] MEDS: PANTOPRAZOLE 40MG TAB (PROTONIX) PO SCH (07:56)
[2021-01-13] MEDS: DOCUSATE SODIUM 100MG CAPSULE PO SCH ×2 (07:56→20:11)
[2021-01-13] MEDS: **NOTE PATIENT COMMENT** MISC XX SCH (07:57)
[2021-01-13] MEDS: REMEDY PHYTOPLEX Z-GUARD PASTE 113GM TUBE (FROM STOREROOM PRODUCT) TOP SCH ×3 (07:57→20:12)
[2021-01-13] MEDS: METOPROLOL TART 12.5 MG PER 1/2 TAB PO SCH ×2 (08:00→20:12)
[2021-01-13] MEDS: amLODIPine 5 MG TAB PO SCH (08:00)
[2021-01-13 14:00] VITALS: BP 147/67
[2021-01-13 20:00] VITALS: BP 155/68
[2021-01-13] MEDS: SENNA 8.6 MG TAB (SENOKOT) PO SCH (20:11)
[2021-01-13] MEDS: ATORVASTATIN 20 MG TAB PO SCH (20:11)
[2021-01-13] MEDS: [UNRECOGNIZED DRUG - REMARK] XX SCH (20:12)
[2021-01-13] MEDS: LIDOCAINE 5% (LIDODERM) PATCH TD SCH (20:12)
[2021-01-14] MEDS: LEVOTHYROXINE 100MCG TABLET (0.1MG) PO SCH (05:37)
[2021-01-14 06:00] VITALS: BP 156/76
[2021-01-14] MEDS: MAGIC MOUTHWASH SUSPENSION BTL SSP SCH ×2 (08:06→12:30)
[2021-01-14] MEDS: BACLOFEN 5MG PER 1/2 TABLET PO PRN (08:07)
[2021-01-14] MEDS: DULoxetine 20 MG CAP (CYMBALTA) PO SCH (08:07)
[2021-01-14] MEDS: LACTOBACILLUS ACIDOPHILUS CAP (BACID) PO SCH (08:07)
[2021-01-14] MEDS: DICLOFENAC EPOLAMINE 1.3 % PATCH TOP SCH (08:07)
[2021-01-14] MEDS: PANTOPRAZOLE 40MG TAB (PROTONIX) PO SCH (08:07)
[2021-01-14] MEDS ORDERED: MAGICMW SSP (08:08)
[2021-01-14] MEDS ORDERED: BACL10TA2 PO (08:08)
[2021-01-14] MEDS ORDERED: LEVO100T5 PO (08:08)
[2021-01-14] MEDS ORDERED: PANT40TA29 PO (08:08)
[2021-01-14] MEDS: METOPROLOL TART 12.5 MG PER 1/2 TAB PO SCH (08:08)
[2021-01-14] MEDS ORDERED: METO1TAB87 PO (08:08)
[2021-01-14] MEDS: ASPIRIN ENTERIC 325 MG TAB PO SCH (08:08)
[2021-01-14] MEDS: DOCUSATE SODIUM 100MG CAPSULE PO SCH (08:08)
[2021-01-14] MEDS ORDERED: CYMB1CAP4 PO (08:08)
[2021-01-14] MEDS ORDERED: AMLO1TAB24 PO (08:08)
[2021-01-14] MEDS ORDERED: ASPI325T57 PO (08:08)
[2021-01-14] MEDS: ACETAMINOPHEN 500 MG TAB PO SCH (08:08)
[2021-01-14] MEDS ORDERED: ATOR40TA75 PO (08:08)
[2021-01-14 08:09] VITALS: BP 156/76
[2021-01-14] MEDS: REMEDY PHYTOPLEX Z-GUARD PASTE 113GM TUBE (FROM STOREROOM PRODUCT) TOP SCH (08:11)
[2021-01-14] MEDS: **NOTE PATIENT COMMENT** MISC XX SCH (08:12)
[2021-01-14] MEDS ORDERED: amLODIPine 5 MG TAB PO SCH (09:00)
[2021-01-14] MEDS ORDERED: VARIBAR PUDDING 40% w/v 230ML TUBE As Ordered ONE (10:51)
[2021-01-14] MEDS ORDERED: E-Z-PAQUE 96% w/w SUSP 176GM BTL As Ordered ONE (10:51)
[2021-01-14] MEDS ORDERED: VARIBAR NECTAR 40% w/v 240ML SUSP BTL As Ordered ONE (10:51)
--- NOTE | 2021-01-14 15:21 | REP ---
INDICATION: Pre discharge. COMPARISON: None. TECHNIQUE: The procedure was performed under the direct supervision of Dr. Garzon. The procedure was performed with Belia Rdz from speech pathology present. 5 cc aliquots of nectar, pudding, thin, mixed fruit, soft and solid consistency barium was administered. As well as a barium pill were administered. 2.7 of fluoroscopy time was utilized for this procedure. FINDINGS: With nectar, thin and next fruit consistency barium there is laryngeal penetration. A detailed report of this examination will be provided by speech pathology. IMPRESSION: With nectar, thin and next fruit consistency barium there is laryngeal penetration. A detailed report of this examination will be provided by speech pathology <Electronically signed by Charles Eldridge > 01/14/21 151 <Electronically signed by Faizan Garzon > 01/14/21 1519
== END 2021-01-14 12:31 | disposition home health service (06) | DRG 57 ==
LOC: M PM&R 14:43
PROVIDERS: ADMIT Physical Medicine & Rehabilitation; ATTEND Physical Medicine & Rehabilitation
DX: I69.354 Hemiplegia and hemiparesis following cerebral infarction affecting left non-dominant side (principal); I50.32 Chronic diastolic (congestive) heart failure; I69.391 Dysphagia following cerebral infarction; R13.10 Dysphagia, unspecified; E78.5 Hyperlipidemia, unspecified; E11.9 Type 2 diabetes mellitus without complications; M54.2 Cervicalgia; I11.0 Hypertensive heart disease with heart failure; E03.9 Hypothyroidism, unspecified; Z74.09 Other reduced mobility; Z74.1 Need for assistance with personal care; Z79.82 Long term (current) use of aspirin; Z79.899 Other long term (current) drug therapy